=== PATIENT | male | born 1960 | race Two or more races ===

== ENCOUNTER → 2017-04-04 | Emergency (ER) | payer OTHER ==
[~2017-04-04] VITALS: Ht 177.8 cm; Wt 77.1 kg
[~2017-04-04] MED LIST: AVAPRO150 MG; CLONAZEPAM1 MG; GUAIASORB DM L118 ML
== END | disposition home or self-care (01) ==
LOC: ER 20:49
DX: S01.81XA Laceration without foreign body of other part of head, initial encounter (principal); W18.39XA Other fall on same level, initial encounter; Y93.89 Activity, other specified; Y92.89 Other specified places as the place of occurrence of the external cause; Y99.8 Other external cause status

== ENCOUNTER 2017-04-12 07:35 | Emergency (ER) | payer OTHER ==
[~2017-04-12] VITALS: Ht 177.8 cm; Wt 77.1 kg
== END 2017-04-12 11:36 | disposition home or self-care (01) ==
LOC: ER 07:35
DX: Z48.02 Encounter for removal of sutures (principal)

== ENCOUNTER 2017-05-13 09:32 | Outpatient (CLI) | payer OTHER | END 2017-05-13 09:42 | disposition home or self-care (01) | LOC: NUCLEAR 09:32 | DX: R60.0 Localized edema (principal); I83.893 Varicose veins of bilateral lower extremities with other complications ==

== ENCOUNTER 2017-06-03 10:04 | Outpatient (CLI) | payer OTHER | END 2017-06-03 13:16 | disposition home or self-care (01) | LOC: RAD 501 10:04 | DX: M25.561 Pain in right knee (principal); M25.562 Pain in left knee ==

== ENCOUNTER 2017-06-03 15:22 | Inpatient (IN) | payer OTHER ==
[~2017-06-03] VITALS: Ht 175.3 cm; Wt 72.6 kg
[2017-06-13] MEDS ORDERED: CHLORDIAZEPOXID25 MG PO (10:35)
[2017-06-13] MEDS ORDERED: FOLIC ACID1 MG PO (10:36)
[2017-06-13] MEDS ORDERED: INTEGRA F CAPS1 EACH PO (10:37)
[2017-06-13] MEDS ORDERED: VITAMIN B-12 51 EACH SL (10:39)
[2017-06-13] MEDS ORDERED: NORVASC5 MG PO (10:40)
== END 2017-06-13 14:25 | DRG 470 ==
LOC: O/R 06-11 07:40 → SURH 06-11 07:40 → CIR.AMB 06-11 15:21 → EDSTATUS 06-11 15:26 → SURH 06-11 15:27
PROVIDERS: Orthopaedic Surgery
PROC: 0SRC0J9 Replacement of Right Knee Joint with Synthetic Substitute, Cemented, Open Approach (ICD-10-PCS; principal; 2017-06-11 14:45)
DX: M17.11 Unilateral primary osteoarthritis, right knee (principal); D62 Acute posthemorrhagic anemia; M85.461 Solitary bone cyst, right tibia and fibula; I11.9 Hypertensive heart disease without heart failure

== ENCOUNTER 2017-09-09 10:01 | Outpatient (CLI) | payer OTHER ==
[~2017-09-09 10:01] MED LIST changes: +CHLORDIAZEPOXID25 MG PO; +FOLIC ACID1 MG PO; +INTEGRA F CAPS1 EACH PO; +NORVASC5 MG PO; +VITAMIN B-12 51 EACH SL
== END 2017-09-09 10:08 | disposition home or self-care (01) ==
LOC: RAD 501 10:01
DX: M25.561 Pain in right knee (principal); M25.562 Pain in left knee

== ENCOUNTER 2018-02-05 09:41 | Outpatient (CLI) | payer OTHER | END 2018-02-05 09:48 | disposition home or self-care (01) | LOC: RAD 09:41 | DX: M25.561 Pain in right knee (principal) ==

== ENCOUNTER 2018-12-02 09:56 | Outpatient (CLI) | payer OTHER | END 2018-12-02 09:57 | disposition home or self-care (01) | LOC: RAD 09:56 | DX: M25.561 Pain in right knee (principal) ==

== ENCOUNTER → 2022-06-10 | Emergency (ER) | payer OTHER ==
[~2022-06-10] VITALS: Ht 175.3 cm; Wt 77.1 kg
== END | disposition home or self-care (01) ==
LOC: ER 12:52
DX: J40 Bronchitis, not specified as acute or chronic (principal); R05.8 Other specified cough; R09.3 Abnormal sputum; R09.81 Nasal congestion

== ENCOUNTER 2022-07-10 08:56 | Emergency (ER) | payer OTHER ==
[~2022-07-10] VITALS: Ht 177.8 cm; Wt 77.1 kg
== END 2022-07-10 11:48 | disposition home or self-care (01) ==
LOC: ER 08:56
DX: M79.671 Pain in right foot (principal); M25.571 Pain in right ankle and joints of right foot

== ENCOUNTER 2023-02-03 15:34 | Emergency (ER) | payer OTHER ==
[~2023-02-03] VITALS: Ht 177.8 cm; Wt 77.1 kg
[2023-02-03 17:11] LABS: HEMATOCRIT 41.3 % (39.0-48.0); HEMOGLOBIN 14.1 g/dL (13-16.00); MEAN CELL VOLUME 84.2 fL (80.0-100.00); MEAN CORPUSCULAR HEMOGLOBIN 28.8 pg (27.00-32.0); MEAN CORPUSCULAR HGB CONC 34.2 g/dl (32.0-36.0); PLATELET COUNT 239 K/uL (150-450); RED CELL DISTRIBUTION WIDTH 13.7 % (11.5-14.5)
== END 2023-02-03 17:55 | disposition home or self-care (01) ==
LOC: ER 15:35
PROVIDERS: General Practice
DX: R05.9 Cough, unspecified (principal); J00 Acute nasopharyngitis [common cold]; Z20.822 Contact with and (suspected) exposure to COVID-19